=== PATIENT | female | born 1960 | race Two or more races ===

== ENCOUNTER 2017-01-25 19:20 | Emergency (ER) | payer MEDICAID ==
[2017-01-25 19:27] VITALS: RESP 16
--- NOTE | 2017-01-25 19:53 | EDPHY ---
H & P Stated Complaint: right hand swelling and redness no injury Time Seen by Provider: 01/25/17 19:53 HPI/ROS: CHIEF COMPLAINT: Mild right hand pain and swelling HISTORY OF PRESENT ILLNESS: The patient presents the ED several days of right hand pain and swelling. The patient denies traumatic injury. She denies fever. She does report a history of mild arthritis. She denies any acute numbness or weakness. The patient denies additional complaints of arthralgias. She has no infectious symptoms of fever, cough or dyspnea. She denies acute rash. REVIEW OF SYSTEMS: A comprehensive 10 point review of systems is otherwise negative aside from elements mentioned in the history of present illness. Source: Patient Exam Limitations: No limitations - Personal History LMP (Females 10-55): Post Menopausal Current Tetanus/Diphtheria Vaccine: No Current Tetanus Diphtheria and Acellular Pertussis (TDAP): No - Medical/Surgical History Hx Asthma: No Hx Chronic Respiratory Disease: No Hx Diabetes: No Hx Cardiac Disease: No Hx Renal Disease: No Hx Cirrhosis: No Hx Alcoholism: No Hx HIV/AIDS: No Hx Splenectomy or Spleen Trauma: No Other PMH: N/A - Social History Smoking Status: Never smoked - Physical Exam Exam: General Appearance: Alert, no distress Eyes: Pupils equal and round no pallor or injection ENT, Mouth: Mucous membranes moist Respiratory: There are no retractions, lungs are clear to auscultation Cardiovascular: Regular rate and rhythm Gastrointestinal: Abdomen is soft and nontender, no masses, bowel sounds normal Neurological: 5/5 strength all 4 extremities, sensation intact to light touch Skin: Warm and dry, no rashes Musculoskeletal: Neck is supple nontender Extremities: Mild soft tissue swelling noted in between the right 4th and 5th metacarpal heads, no erythema, no fluctuance, no tenderness to palpation along the tendon sheath Constitutional: Initial Vital Signs Temperature (C) 36.3 C 01/25/17 19:24 Heart Rate 57 L 01/25/17 19:24 Respiratory Rate 16 01/25/17 19:24 Blood Pressure 138/74 H 01/25/17 19:24 O2 Sat (%) 96 01/25/17 19:24 O2 Delivery Mode Room Air Allergies/Adverse Reactions: No Known Allergies Allergy (Verified 01/25/17 19:27) Home Medications: Medication Instructions Recorded Zoloft 25mg (*) 01/25/17 traZODone 01/25/17 Medical Decision Making - Diagnostics Imaging Results: Right hand x-ray: Images reviewed by myself and discussed with radiologist, calcification of uncertain significance noted in between the 4th and 5th metacarpal heads which corresponds to the area of the patient's tenderness. Possible explanations include a calcification associated with the joint, synovium or old hematoma. ED Course/Re-evaluation: The patient presents to the ED with an area of right hand pain and swelling. There is no clinical evidence of an acute infection. She denies history of trauma. Her x-ray does demonstrate a calcification in the area of her tenderness. At this point time the patient will be referred to our on-call hand surgeon Dr. Boss for definitive evaluation of her hand complaints. I do not feel that antibiotics are indicated based upon her presentation today. Departure - Departure Disposition: Home, Routine, Self-Care Clinical Impression: Right hand pain Condition: Good Instructions: Arthralgia (ED) Additional Instructions: 1. Please follow up with a hand surgeon you have been referred to for further evaluation of the pain and swelling your experiencing her an. You have a calcification noted on her x-ray today in the area which is painful. This is of uncertain significance and requires further specialist evaluation. 2. Take Ibuprofen or Motrin 600 mg by mouth three times a day. Referrals: Noam Boss MD [Medical Doctor] - As per Instructions
[2017-01-25 20:56] VITALS: BP 130/72; PULSE 60; TEMP 98.1; O2SAT 97
== END 2017-01-25 20:56 | disposition home or self-care (01) ==
DX: M79.641 Pain in right hand (principal)